=== PATIENT | male | born 1985 | race Two or more races ===

== ENCOUNTER 2021-01-06 06:18 | Emergency (ER) | payer MEDICAID ==
[~2021-01-06] VITALS: Ht 185.4 cm; Wt 98.0 kg
[2021-01-06 08:03] VITALS: BP 136/92
[2021-01-06] MEDS ORDERED: TETANUS, DIPHTHERIA, PERTUSSIS VAC/PF 0.5ML (>10YR OLD) IM ONE (08:15)
[2021-01-06] MEDS ORDERED: LIDOCAINE HCL/EPINEPHRINE 1%-EPI 1:100,000 20 ML VIAL INFIL ONE (08:15)
[2021-01-06] MEDS ORDERED: CEPH500C2 MT (08:45)
== END 2021-01-06 08:54 | disposition home or self-care (01) ==
LOC: ER 06:18
DX: S51.812A Laceration without foreign body of left forearm, initial encounter (principal); S71.111A Laceration without foreign body, right thigh, initial encounter; W26.9XXA Contact with unspecified sharp object(s), initial encounter; Y93.39 Activity, other involving climbing, rappelling and jumping off; Y92.89 Other specified places as the place of occurrence of the external cause
CPT/HCPCS: 12002; 90471; 90715; 99283; J3490; Z7610

== ENCOUNTER 2021-01-17 04:10 | Emergency (ER) | payer MEDICAID ==
[~2021-01-17] VITALS: Ht 188 cm; Wt 98.0 kg
[~2021-01-17 04:10] MED LIST: CEPH500C2 MT
[2021-01-17 04:31] VITALS: BP 119/84
== END 2021-01-17 05:10 | disposition home or self-care (01) ==
LOC: ER 04:10
DX: Z48.02 Encounter for removal of sutures (principal)
CPT/HCPCS: 99281

== ENCOUNTER 2021-06-25 02:36 | Emergency (ER) | payer MEDICAID, OTHER ==
[~2021-06-25] VITALS: Ht 185.4 cm; Wt 98.0 kg
[2021-06-25 04:21] VITALS: BP 123/87
== END 2021-06-25 04:46 | disposition home or self-care (01) ==
LOC: ER 02:36
DX: S90.121A Contusion of right lesser toe(s) without damage to nail, initial encounter (principal); W23.0XXA Caught, crushed, jammed, or pinched between moving objects, initial encounter; Y93.89 Activity, other specified; Y92.89 Other specified places as the place of occurrence of the external cause; Y99.0 Civilian activity done for income or pay
CPT/HCPCS: 73630; 99283

== ENCOUNTER 2022-07-16 13:41 | Emergency (ER) | payer MEDICAID ==
[~2022-07-16] VITALS: Ht 188 cm; Wt 96.0 kg
[2022-07-16] MEDS ORDERED: KETOROLAC 60MG/2ML VIAL IM STA (14:30)
[2022-07-16] MEDS ORDERED: KETOROLAC 60MG/2ML VIAL IM NR (16:15)
[2022-07-16 16:17] VITALS: BP 128/86
[2022-07-16] MEDS ORDERED: D-ME473S50 PO (17:49)
[2022-07-16] MEDS ORDERED: NAPR-681 PO (17:49)
== END 2022-07-16 18:54 | disposition home or self-care (01) ==
LOC: ER 13:41
DX: J02.9 Acute pharyngitis, unspecified (principal); J06.9 Acute upper respiratory infection, unspecified; Z20.822 Contact with and (suspected) exposure to COVID-19
CPT/HCPCS: 87070; 87426; 87430; 96372; 99283; C9803; J1885; Z7610

== ENCOUNTER 2024-10-18 04:46 | Emergency (ER) | payer MEDICAID ==
[~2024-10-18] VITALS: Ht 185.4 cm; Wt 93.0 kg
[~2024-10-18 04:46] MED LIST changes: +D-ME473S50 PO; +NAPR-681 PO
[2024-10-18 05:03] VITALS: O2SAT 96
[2024-10-18] MEDS ORDERED: IBUP-2029 MT (05:40)
[2024-10-18] MEDS ORDERED: AZIT250T12 MT (05:40)
[2024-10-18 05:41] VITALS: BP 122/86; PULSE 74; RESP 18; TEMP 36.8; O2SAT 96
== END 2024-10-18 05:52 | disposition home or self-care (01) ==
LOC: ER 05:16
DX: J02.9 Acute pharyngitis, unspecified (principal); R05.9 Cough, unspecified; Z79.899 Other long term (current) drug therapy
CPT/HCPCS: 71045; 87070; 87430; 99284